=== PATIENT | female | born 1990 | race Caucasian/White ===

== ENCOUNTER 2017-03-31 22:05 | Emergency (ER) | payer MEDICAID ==
[2017-03-31 22:14] VITALS: BP 129/85; BMI 38.9
--- NOTE | 2017-03-31 23:04 | DR.GENAD ---
HPI - PCP Primary Care Physician: CHIQUIS COLLAZO - HPI Comment HPI Comment: PATIENT WAS IN THE TONG AND NOW HAVE SKIN RASH AND PRURITUS. NO SOB, NO FEVER. GETTING WORSE. - Complaint/Symptoms Chief Complaint Doctors Comments: RASH, GENERALIZE PRURITUS. WENT TO THE TONG. Chief Complaint:: HEADACHE, GENERALIZED ITCHING Self Treatment fo Chief Complaint: TOPICAL HYDROCORTIZONE - Nurses notes reviewed Nurses Notes Review: Yes - Source History Provided: Patient, Friend - Mode of Arrival Mode of Arrival: Ambulatory - Timing Onset of Chief Complaint: 03/29/17 - Duration Duration: Constant Duration: Days - Severity Severity: Moderate PMH - PMH Past Medical History: Yes Past Medical History: Migraines Past Surgical History: Yes Surgical History: Cholecystectomy - Family History History of Family Medical Conditions: No - Social History Does patient currently use any type of tobacco product: No Have you used tobacco products in the last 12 months: No Type of Tobacco Use: None Does any household member use tobacco: No Alcohol Use: None Do you use any recreational Drugs:: Yes (MJ) Lives With: Spouse Lives Where: Home - infectious screening In the last 2 months have you had wt loss of >10#?: NO Have you had fever, night sweats or hemotysis?: No Have you traveled outside the country in the last 6 months?: No Isolation: Standard ROS - Review of Systems Constitutional: No Symptoms Reported Eyes: No Symptoms Reported. negative: Eye Pain, Discharge ENTM: No Symptoms Reported. negative: Ear Pain, Nose Discharge, Nose Congestion , Throat Pain Respiratoy: No Symptoms Reported. negative: Productive Cough, Non-Productive Cough, Short of Breath, Stridor, Wheezing, Hemoptysis Cardiovascular: No Symptoms Reported. negative: Chest Pain Gastrointestinal/Abdominal: No Symptoms Reported, Nausea. negative: Abdominal Pain, Constipation, Vomiting Genitourinary: No Symptoms Reported. negative: Dysuria, Frequency, Hematuria Neurological: Headache, Weakness, Dizziness Musculoskeletal: Neck Pain Integumentary: Change in Color, Rash, Itching Hematologic/Lymphatic: No Symptoms Reported Endocrine: No Symptoms Reported, Excessive Sweating All Other Systems: Reviewed and Negative PE - Vital Signs Vitals: Temperature 98.2 F Pulse Rate 98 Respiratory Rate 16 Blood Pressure [Left Arm] 133/79 Blood Pressure 129/85 O2 Sat by Pulse Oximetry 99 - General Limitations: No Limitations General Appearance: Alert - Head Head Exam: Normal Inspection - Eyes Eye exam: Normal Appearance - ENT ENT Exam: Normal External Ear Exam External Ear Exam: Normal External Inspection TM/Canal Exam: Bilateral Normal Nose Exam: Normal Nose Exam Mouth Exam: Normal Inspection Throat Exam: Normal Inspection - Neck Neck Exam: Trachea Midline. negative: Tenderness, Meningismus, Lymphadenopathy - Chest Chest Inspection: Symmetric Chest Wall Rise - Respiratory Respiratory Exam: Normal Lung Sounds Bilat Respiratory Exam: Bilateral Clear to Auscultation - Cardiovascular Cardiovascular Exam: Regular Rate, Normal Rhythm, Normal Heart Sounds - Abdominal Exam Abdominal Exam: Normal Bowel Sounds, Soft, Tenderness - Extremities Extremities Exam: Normal Inspection, Full ROM - Neurologic Neurological Exam: Alert, Oriented X3 - Psychiatric Psychiatric Exam: Anxious - Skin Skin Exam: Rash, Erythema, Other (PRURITUS) MDM - Additional Information Additional Information Obtained From: Family - Differential Diagnosis Differential Diagnosis: RASH PRURITUS, ALLERGIC RACTION. Course - Treatment Treatment: SEE ORDERS - Reevaluation 1st: Improved (WITH MEDS IN ED.) - Education/Counseling Education/Counseling: Patient, Family, Education Educated On: Diagnosis, Needs for Follow Up - Diagnosis Discharge Problem: Allergic dermatitis due to poison radha - Discharge Plan Disposition: 01 HOME, SELF-CARE Condition: Stable Prescriptions: Hydroxyzine Pamoate [Vistaril] 25 mg PO TID PRN #20 cap PRN Reason: Methylprednisolone Dosepak 4Mg [MEDROL DOSEPAK (4 mg tab x 21)] 1 donis PO ONCE # 1 donis - Follow ups/Referrals Follow ups/Referrals: CHIQUIS COLLAZO [Primary Care Provider] - 3 days - Instructions Instructions: Poison Radha Dermatitis Additional Instructions: RETURN TO ED IF WORSE.
[2017-03-31] MEDS ORDERED: VISTARIL PO ONE ×2 (23:05→23:12)
[2017-03-31] MEDS ORDERED: DECADRON INJ IM ONE (23:05)
[2017-03-31] MEDS ORDERED: DECADRON INJ ONE (23:12)
== END 2017-03-31 23:30 | disposition home or self-care (01) ==
LOC: ER 22:19
DX: L23.7 Allergic contact dermatitis due to plants, except food (principal)
CPT/HCPCS: 96372; 99282; Q0177; J1100